=== PATIENT | female | born 1995 | race Asian ===

== ENCOUNTER 2020-04-21 19:30 | Emergency (ER) | payer SELFPAY ==
[~2020-04-21] VITALS: Ht 170.2 cm; Wt 61.2 kg
--- NOTE | 2020-04-21 19:51 | NUR ---
URINE SAMPLE COLLECTED.
--- NOTE | 2020-04-21 19:53 | NUR ---
[facility] MANAGER AT BEDSIDE TO MUNIR SAINZ.
--- NOTE | 2020-04-21 20:11 | NUR ---
BIBS FROM WORK TO ER BED 17. AAOX4. NOT IN RESP DISTRESS. AMBUALTORY. CAME IN FOR RIGHT POSTERIORNECK PAIN S/P DANCE PRACTICE. ROM INTACT. PAIN WHEN MOVING NECK. NO PAIN ON MIDLINE SPINE NOTED. CHASITY ROBERTSON WAS AT THE BEDSIDE FOR EVAL.
[2020-04-21] MEDS ORDERED: KETOROLAC TROMETHAMINE INJ 60 MG/2 ML VIAL IM ONE (20:30)
[2020-04-21] MEDS ORDERED: KETOROLAC TROMETHAMINE INJ 30 MG/ML VIAL ONE (20:36)
--- NOTE | 2020-04-21 20:50 | NUR ---
Patient discharged to home in stable condition. Written and verbal after care instructions given. Patient verbalizes understanding of instruction. Pt ambulatory with a steady gait
[2020-04-21 21:09] VITALS: BP 125/65
== END 2020-04-21 21:09 | disposition home or self-care (01) ==
LOC: ER 19:31
DX: S16.1XXA Strain of muscle, fascia and tendon at neck level, initial encounter (principal); J45.909 Unspecified asthma, uncomplicated; X58.XXXA Exposure to other specified factors, initial encounter; Y93.41 Activity, dancing; Y92.89 Other specified places as the place of occurrence of the external cause; Y99.8 Other external cause status
CPT/HCPCS: 84703; 96372; 99283; J1885